=== PATIENT | male | born 1985 | race Caucasian/White ===

== ENCOUNTER 2016-11-19 09:29 | Inpatient (IN) | payer OTHER ==
[2016-11-19 10:13] VITALS: BMI 25.4
--- NOTE | 2016-11-19 14:34 | HP ---
COWS - Scale Resting Pulse: 0= [place] 80 or Below Sweatin=Flushed/Facial Moisture Restless Observation: 1= Difficult to Sit Still Pupil Size: 0= Normal to Room Light Bone or Joint Aches: 2= Severe Diffuse Aches Runny Nose/ Eye Tearin= Runny Nose/Eyes GI Upset > 30mins: 1= Stomach Cramp Tremor Observation: 2= Slight Tremor Visible Yawning Observation: 2= >3x During Session Anxiety or Irritability: 2=Irritable/Anxious Goose Flesh Skin: 3=Piloerection COWS Score: 17 Admission ROS [facility] Allergies/Adverse Reactions: Allergies Allergy/AdvReac Type Severity Reaction Status Date / Time No Known Allergies Allergy Verified 11/19/16 14:27 History of Present Illness: pt is a 31yr old male with a history of heroin, fentanyl, cocaine, cannabis dependence seeking detox for treatment. Exam Limitations: No Limitations - Ebola screening Have you traveled outside of the country in the last 21 days: No Have you had contact with anyone from an Ebola affected area: No Have you been sick,other than usual withdrawal symptoms: No Do you have a fever: No - Review of Systems Constitutional: Chills, Loss of Appetite, Night Sweats EENT: reports: Tearing, Nose Congestion, Other (left ear deafness.) Respiratory: reports: No Symptoms reported Cardiac: reports: No Symptoms Reported GI: reports: Nausea, Poor Appetite, Poor Fluid Intake : reports: No Symptoms Reported Musculoskeletal: reports: Back Pain, Muscle Pain Integumentary: reports: Flushing, Sweating, Other (abscess to right hand IVD) Neuro: reports: Headache, Tingling, Tremors Endocrine: reports: Excessive Sweating, Flushing, Intolerance to Cold, Intolerance to Heat Hematology: reports: No Symptoms Reported Psychiatric: reports: Judgement Intact, Orientated x3, Agitated, Anxious Other Systems: Reviewed and Negative Patient History - Patient Medical History Hx Anemia: No Hx Asthma: No Hx Chronic Obstructive Pulmonary Disease (COPD): No Hx Cancer: No Hx Cardiac Disorders: No Hx Congestive Heart Failure: No Hx Hypertension: No Hx Hypercholesterolemia: No Hx Pacemaker: No HX Cerebrovascular Accident: No Hx Seizures: No Hx Dementia: No Hx Diabetes: No Hx Gastrointestinal Disorders: No Hx Liver Disease: No Hx Genitourinary Disorders: No Hx Sexually Transmitted Disorders: No Hx Renal Disease (ESRD): No Hx Thyroid Disease: No Hx Human Immunodeficiency Virus (HIV): No (negative) Hx Hepatitis C: No (negative) Hx Depression: No Hx Suicide Attempt: No Hx Bipolar Disorder: No Hx Schizophrenia: No - Patient Surgical History Past Surgical History: No - PPD History Previous Implant?: Yes Documented Results: Negative w/o proof Implanted On Prior R Admission?: No PPD to be Administered?: Yes - Reproductive History Patient is a Female of Child Bearing Age (11 -55 yrs old): No - Smoking Cessation Smoking history: Never smoked Aproximately how many cigarettes per day: 10 Hx Chewing Tobacco Use: No Initiated information on smoking cessation: Yes 'Breaking Loose' booklet given: 11/19/16 - Substance & Tx. History Hx Alcohol Use: Yes Hx Substance Use: Yes Substance Use Type: Cocaine, Heroin, Opiates Hx Substance Use Treatment: Yes Family Disease History - Family Disease History Family History: Denies Admission Physical Exam [facility] - Vital Signs Vital Signs: Vital Signs - 24 hr 11/19/16 10:11 Temperature 98 F Pulse Rate 77 Respiratory 18 Rate Blood Pressure 141/80 - Physical General Appearance: Yes: Appropriately Dressed, Moderate Distress, Tremorous, Irritable, Sweating, Anxious HEENTM: Yes: Normal Voice, Nasal Congestion, Rhinorrhea Respiratory: Yes: Lungs Clear, Normal Breath Sounds, No Respiratory Distress Neck: Yes: Within Normal Limits Breast: Yes: Within Normal Limits Cardiology: Yes: Regular Rhythm, Regular Rate, S1, S2 Abdominal: Yes: Normal Bowel Sounds, Non Tender Genitourinary: Yes: Within Normal Limits Back: Yes: Normal Inspection Musculoskeletal: Yes: Back pain, Muscle Pain Extremities: Yes: Normal Capillary Refill, Non-Tender, Tremors Neurological: Yes: Fully Oriented, Alert, Normal Response Integumentary: Yes: Diaphoresis, Track Pringle Lymphatic: Yes: Within Normal Limits - Diagnostic (1) Cannabis dependence, uncomplicated Current Visit: Yes Status: Chronic (2) Cocaine dependence, uncomplicated Current Visit: Yes Status: Chronic (3) Nicotine dependence Current Visit: Yes Status: Chronic Qualifiers: Nicotine product type: cigarettes Substance use status: uncomplicated Qualified Code(s): F17.210 - Nicotine dependence, cigarettes, uncomplicated (4) Opioid dependence with withdrawal Current Visit: Yes Status: Chronic (5) Fentanyl dependence Current Visit: Yes Status: Chronic Cleared for Admission [facility] - Detox or Rehab [facility] Level of Care: Medically Managed Detox Regimen/Protocol: Methadone [facility] Breath Alcohol Content Breath Alcohol Content: 0 Urine Drug Screen - Results Drug Screen Negative: No Urine Drug Screen Results: THC-Marijuana, BRIANA-Cocaine, OPI-Opiates, MTD- Methadone
[2016-11-19] MEDS ORDERED: diphenhydrAMINE HCL 50 MG CAPSULE PO PRN (14:46)
[2016-11-19] MEDS ORDERED: hydrOXYzine PAMOATE 50 MG CAPSULE (FP) PO PRN (14:46)
[2016-11-19] MEDS ORDERED: MAGNESIUM CITRATE 300 ML BOTTLE PO PRN (14:46)
[2016-11-19] MEDS ORDERED: ACETAMINOPHEN 325 MG TABLET (FP) PO PRN (14:46)
[2016-11-19] MEDS ORDERED: LOPERAMIDE HCL 2 MG CAPSULE PO PRN (14:46)
[2016-11-19] MEDS ORDERED: IBUPROFEN 600 MG TABLET (FP) PO PRN (14:46)
[2016-11-19] MEDS ORDERED: MENTHOL/PHENOL 1 EACH UD MM PRN (14:46)
[2016-11-19] MEDS ORDERED: guaiFENesin/D-METHORPHAN HB 10 ML UNIT-DOSE CUPS PO PRN (14:46)
[2016-11-19] MEDS ORDERED: MAGNESIUM HYDROX 2400MG/30ML ORAL SUSPENSION 30 ML CUP PO PRN (14:46)
[2016-11-19] MEDS ORDERED: NICOTINE POLACRILEX 4 MG GUM BUC PRN (14:46)
[2016-11-19] MEDS ORDERED: MAG HYDROX/AL HYDROX/SIMETH 30 ML UNIT-DOSE CUP PO PRN (14:46)
[2016-11-19] MEDS ORDERED: P-EPHED 60MG/TRIPROLIDI 2.5MG TABLET PO PRN (14:46)
[2016-11-19] MEDS ORDERED: METHADONE HCL 10 MG TABLET (FOR DETOX USE ONLY) PO ONE ×2 (15:31→23:00)
[2016-11-19] MEDS: diazePAM 5 MG TABLET PO PRN ×2 (15:48→22:04)
[2016-11-19] MEDS ORDERED: COLLOIDAL OATMEAL 1 BAR EACH TP PRN (17:12)
[2016-11-19] MEDS: VITAMINS A AND D TOPICAL OINTMENT 60 GM TUBE TP SCH ×2 (17:13→23:34)
[2016-11-19] MEDS: CEPHALEXIN MONOHYDRATE 500 MG CAPSULE (UD) PO SCH ×2 (17:13→23:21)
[2016-11-19 20:13] LABS: URINE APPEARANCE CLEAR; URINE BILIRUBIN NEGATIVE (NEGATIVE); URINE BLOOD NEGATIVE (NEGATIVE); URINE COLOR DKYELLOW; URINE GLUCOSE (UA) NEGATIVE (NEGATIVE); URINE KETONE NEGATIVE (NEGATIVE); URINE LEUK ESTERASE NEGATIVE (NEGATIVE); URINE NITRITE NEGATIVE (NEGATIVE); URINE PROTEIN NEGATIVE (NEGATIVE); URINE UROBILINOGEN 4.0 E.U/dl E.U./dl (0.2-1.0)
[2016-11-19] MEDS: BACITRACIN 0.9 GM PACKET TP SCH (22:03)
[2016-11-19] MEDS: cloNIDine HCL 0.1 MG TABLET PO SCH (22:04)
[2016-11-19] MEDS: THIAMINE HCL 100 MG TABLET (FP) PO SCH (22:21)
[2016-11-20] MEDS: diazePAM 5 MG TABLET PO PRN ×4 (05:47→22:06)
[2016-11-20] MEDS: CEPHALEXIN MONOHYDRATE 500 MG CAPSULE (UD) PO SCH ×4 (05:47→23:03)
[2016-11-20] MEDS: VITAMINS A AND D TOPICAL OINTMENT 60 GM TUBE TP SCH ×4 (06:19→23:03)
[2016-11-20] MEDS ORDERED: METHADONE HCL 10 MG TABLET (FOR DETOX USE ONLY) PO ONE (10:00)
[2016-11-20 10:17] LABS: MCH 30.5 pg (25.7-33.7); MCHC 34.7 g/dl (32.0-35.9); PLATELET COUNT 213 K/MM3 (134-434); RDW 12.3 % (11.9-15.9)
[2016-11-20 10:22] LABS: ALBUMIN 3.3 g/dl (3.4-5.0); ANION GAP 11 (8-16); CALCIUM 8.3 mg/dL (8.5-10.1); CO2 27 mmol/L (21-32); GLUCOSE,RANDOM 93 mg/dL (74-106); SGOT/AST 106 U/L (15-37); SGPT/ALT 110 U/L (12-78)
[2016-11-20] MEDS: cloNIDine HCL 0.1 MG TABLET PO SCH ×2 (10:23→22:07)
[2016-11-20] MEDS: NICOTINE 21 MG/24 HOURS TOPICAL PATCH TD SCH (10:23)
[2016-11-20] MEDS: BACITRACIN 0.9 GM PACKET TP SCH ×2 (10:23→22:07)
[2016-11-20] MEDS: PRENATAL VITAMINS W/ FOLIC ACID TABLET (FP) PO SCH (10:23)
[2016-11-20 10:24] LABS: ALK PHOS 73 U/L (45-117); BILIRUBIN,TOTAL 0.7 mg/dL (0.2-1.0); COCKROFT - GAULT 169.95; CREATININE 0.8 mg/dL (0.7-1.3); TOT PROT 6.4 g/dl (6.4-8.2)
[2016-11-20] MEDS: CYCLOBENZAPRINE HCL 10 MG TABLET (FP) PO PRN ×2 (10:24→22:06)
--- NOTE | 2016-11-20 13:36 | PN ---
[facility]HS COWS - Scale Resting Pulse: 1= [place] 81-100 Sweatin=Flushed/Facial Moisture Restless Observation: 1= Difficult to Sit Still Pupil Size: 0= Normal to Room Light Bone or Joint Aches: 2= Severe Diffuse Aches Runny Nose/ Eye Tearin= Runny Nose/Eyes GI Upset > 30mins: 2= Nausea/Diarrhea Tremor Observation of Outstretched Hands: 2= Slight Tremor Visible Yawning Observation: 1= 1-2x During Session Anxiety or Irritability: 2=Irritable/Anxious Goose Flesh Skin: 0=Smooth Skin COWS Score: 15 BHS Progress Note (SOAP) Subjective: Anxiety,tremors,sweating,interrupted sleep,restless.C/O rash on face not getting better with bacitracin oin't Objective: 11/20/16 13:35 Last Vital Signs Temp Pulse Resp BP Pulse Ox 98.4 F 93 H 18 123/76 11/20/16 09:32 11/20/16 09:32 11/20/16 09:32 11/20/16 09:32 Laboratory Tests 11/19/16 11/20/16 11/20/16 15:32 06:00 06:00 WBC 5.0 RBC 4.22 Hgb 12.9 Hct 37.2 MCV 88.0 MCHC 34.7 RDW 12.3 Plt Count 213 MPV 8.0 Sodium 139 Potassium 3.9 Chloride 101 Carbon Dioxide 27 Anion Gap 11 BUN 13 Creatinine 0.8 Creat Clearance w eGFR > 60 Random Glucose 93 Calcium 8.3 L Total Bilirubin 0.7 AST 106 H ALT 110 H Alkaline Phosphatase 73 Total Protein 6.4 Albumin 3.3 L Urine Color Dkyellow Urine Appearance Clear Urine pH 6.0 Ur Specific [place] 1.024 Urine Protein Negative Urine Glucose (UA) Negative Urine Ketones Negative Urine Blood Negative Urine Nitrite Negative Urine Bilirubin Negative Urine Urobilinogen 4.0 e.u/dl Ur Leukocyte Esterase Negative labs noted Assessment: 11/20/16 13:35 Withdrawal sx. Plan: Continue detox
[2016-11-20 14:00] LABS: HIV 1 & 2 AB NEGATIVE; HIV 1 AGp24 NEGATIVE
[2016-11-20] MEDS: HYDROCORTISONE 1% TOPICAL CREAM 30 GM TUBE TP SCH ×3 (15:29→22:07)
--- NOTE | 2016-11-20 16:16 | EKG ---
Test Reason : Blood Pressure : / mmHG Vent. Rate : 076 BPM Atrial Rate : 076 BPM P-R Int : 160 ms QRS Dur : 106 ms QT Int : 394 ms P-R-T Axes : 073 066 034 degrees QTc Int : 443 ms NORMAL SINUS RHYTHM NORMAL ECG NO PREVIOUS ECGS AVAILABLE Confirmed by AB SHER MD ([id number]) on 11/20/2016 4:16:27 PM Referred By: Confirmed By:AB SHER MD
[2016-11-20] MEDS: THIAMINE HCL 100 MG TABLET (FP) PO SCH (22:06)
[2016-11-21] MEDS: CEPHALEXIN MONOHYDRATE 500 MG CAPSULE (UD) PO SCH ×4 (05:32→23:06)
[2016-11-21] MEDS: VITAMINS A AND D TOPICAL OINTMENT 60 GM TUBE TP SCH ×4 (05:33→23:06)
[2016-11-21] MEDS ORDERED: METHADONE HCL 5 MG TABLET (FOR DETOX USE ONLY) PO ONE (10:00)
[2016-11-21] MEDS: HYDROCORTISONE 1% TOPICAL CREAM 30 GM TUBE TP SCH ×4 (10:06→22:05)
[2016-11-21] MEDS: PRENATAL VITAMINS W/ FOLIC ACID TABLET (FP) PO SCH (10:06)
[2016-11-21] MEDS: diazePAM 5 MG TABLET PO PRN ×2 (10:06→22:03)
[2016-11-21] MEDS: CYCLOBENZAPRINE HCL 10 MG TABLET (FP) PO PRN ×2 (10:06→22:03)
[2016-11-21] MEDS: BACITRACIN 0.9 GM PACKET TP SCH ×2 (10:06→22:03)
[2016-11-21] MEDS: cloNIDine HCL 0.1 MG TABLET PO SCH ×2 (10:06→22:03)
[2016-11-21] MEDS: NICOTINE 21 MG/24 HOURS TOPICAL PATCH TD SCH (10:06)
--- NOTE | 2016-11-21 12:54 | PN ---
[facility] COWS - Scale Resting Pulse: 0= [place] 80 or Below Sweatin=Flushed/Facial Moisture Restless Observation: 1= Difficult to Sit Still Pupil Size: 0= Normal to Room Light Bone or Joint Aches: 2= Severe Diffuse Aches Runny Nose/ Eye Tearin= Runny Nose/Eyes GI Upset > 30mins: 2= Nausea/Diarrhea Tremor Observation of Outstretched Hands: 2= Slight Tremor Visible Yawning Observation: 1= 1-2x During Session Anxiety or Irritability: 2=Irritable/Anxious Goose Flesh Skin: 0=Smooth Skin COWS Score: 14 BHS Progress Note (SOAP) Subjective: anxiety,tremors,sweating,restless,interrupted sleep. Objective: 11/21/16 12:54 Vital Signs - 8 hr 11/21/16 11/21/16 06:26 09:23 Temperature 96.8 F L 97.1 F L Pulse Rate 62 68 Respiratory 16 18 Rate Blood Pressure 98/58 108/63 Laboratory Tests 11/19/16 11/20/16 11/20/16 15:32 06:00 06:00 WBC 5.0 RBC 4.22 Hgb 12.9 Hct 37.2 MCV 88.0 MCHC 34.7 RDW 12.3 Plt Count 213 MPV 8.0 Sodium 139 Potassium 3.9 Chloride 101 Carbon Dioxide 27 Anion Gap 11 BUN 13 Creatinine 0.8 Creat Clearance w eGFR > 60 Random Glucose 93 Calcium 8.3 L Total Bilirubin 0.7 AST 106 H ALT 110 H Alkaline Phosphatase 73 Total Protein 6.4 Albumin 3.3 L Urine Color Dkyellow Urine Appearance Clear Urine pH 6.0 Ur Specific [place] 1.024 Urine Protein Negative Urine Glucose (UA) Negative Urine Ketones Negative Urine Blood Negative Urine Nitrite Negative Urine Bilirubin Negative Urine Urobilinogen 4.0 e.u/dl Ur Leukocyte Esterase Negative RPR Titer HIV 1&2 Antibody Screen HIV P24 Antigen 11/20/16 11/20/16 06:00 10:05 WBC RBC Hgb Hct MCV MCHC RDW Plt Count MPV Sodium Potassium Chloride Carbon Dioxide Anion Gap BUN Creatinine Creat Clearance w eGFR Random Glucose Calcium Total Bilirubin AST ALT Alkaline Phosphatase Total Protein Albumin Urine Color Urine Appearance Urine pH Ur Specific [place] Urine Protein Urine Glucose (UA) Urine Ketones Urine Blood Urine Nitrite Urine Bilirubin Urine Urobilinogen Ur Leukocyte Esterase RPR Titer Nonreactive HIV 1&2 Antibody Screen Negative HIV P24 Antigen Negative labs noted Assessment: 11/21/16 12:54 Withdrawal sx. Plan: Continue detox
[2016-11-21] MEDS: THIAMINE HCL 100 MG TABLET (FP) PO SCH (22:03)
[2016-11-22] MEDS: diazePAM 5 MG TABLET PO PRN ×2 (05:39→10:09)
[2016-11-22] MEDS: CEPHALEXIN MONOHYDRATE 500 MG CAPSULE (UD) PO SCH ×4 (05:39→23:03)
[2016-11-22] MEDS: VITAMINS A AND D TOPICAL OINTMENT 60 GM TUBE TP SCH ×4 (05:40→23:04)
[2016-11-22] MEDS ORDERED: METHADONE HCL 5 MG TABLET (FOR DETOX USE ONLY) PO ONE (10:00)
[2016-11-22] MEDS: NICOTINE 21 MG/24 HOURS TOPICAL PATCH TD SCH (10:07)
[2016-11-22] MEDS: cloNIDine HCL 0.1 MG TABLET PO SCH ×2 (10:07→22:37)
[2016-11-22] MEDS: PRENATAL VITAMINS W/ FOLIC ACID TABLET (FP) PO SCH (10:07)
[2016-11-22] MEDS: HYDROCORTISONE 1% TOPICAL CREAM 30 GM TUBE TP SCH ×4 (10:07→22:02)
[2016-11-22] MEDS: BACITRACIN 0.9 GM PACKET TP SCH ×2 (10:07→22:03)
--- NOTE | 2016-11-22 10:39 | PN ---
BHS Progress Note (SOAP) Subjective: Sweating,interrupted sleep,restless Objective: 11/22/16 10:37 Vital Signs - 8 hr 11/22/16 11/22/16 06:35 09:45 Temperature 96.2 F L 96.3 F L Pulse Rate 52 L 61 Respiratory 18 18 Rate Blood Pressure 112/69 110/64 Laboratory Tests 11/19/16 11/20/16 11/20/16 15:32 06:00 06:00 WBC 5.0 RBC 4.22 Hgb 12.9 Hct 37.2 MCV 88.0 MCHC 34.7 RDW 12.3 Plt Count 213 MPV 8.0 Sodium 139 Potassium 3.9 Chloride 101 Carbon Dioxide 27 Anion Gap 11 BUN 13 Creatinine 0.8 Creat Clearance w eGFR > 60 Random Glucose 93 Calcium 8.3 L Total Bilirubin 0.7 AST 106 H ALT 110 H Alkaline Phosphatase 73 Total Protein 6.4 Albumin 3.3 L Urine Color Dkyellow Urine Appearance Clear Urine pH 6.0 Ur Specific [place] 1.024 Urine Protein Negative Urine Glucose (UA) Negative Urine Ketones Negative Urine Blood Negative Urine Nitrite Negative Urine Bilirubin Negative Urine Urobilinogen 4.0 e.u/dl Ur Leukocyte Esterase Negative RPR Titer HIV 1&2 Antibody Screen HIV P24 Antigen 11/20/16 11/20/16 06:00 10:05 WBC RBC Hgb Hct MCV MCHC RDW Plt Count MPV Sodium Potassium Chloride Carbon Dioxide Anion Gap BUN Creatinine Creat Clearance w eGFR Random Glucose Calcium Total Bilirubin AST ALT Alkaline Phosphatase Total Protein Albumin Urine Color Urine Appearance Urine pH Ur Specific [place] Urine Protein Urine Glucose (UA) Urine Ketones Urine Blood Urine Nitrite Urine Bilirubin Urine Urobilinogen Ur Leukocyte Esterase RPR Titer Nonreactive HIV 1&2 Antibody Screen Negative HIV P24 Antigen Negative labs noted Assessment: 11/22/16 10:38 Withdrawal sx. Plan: Continue detox
[2016-11-22] MEDS: THIAMINE HCL 100 MG TABLET (FP) PO SCH (22:02)
[2016-11-22] MEDS: CYCLOBENZAPRINE HCL 10 MG TABLET (FP) PO PRN (22:04)
[2016-11-23] MEDS: CEPHALEXIN MONOHYDRATE 500 MG CAPSULE (UD) PO SCH ×4 (05:27→23:25)
[2016-11-23] MEDS: VITAMINS A AND D TOPICAL OINTMENT 60 GM TUBE TP SCH ×4 (05:28→23:41)
--- NOTE | 2016-11-23 09:32 | PN ---
BHS Progress Note (SOAP) Subjective: Sweating,interrupted sleep,restless Objective: 11/23/16 09:30 Vital Signs - 8 hr 11/23/16 06:31 Temperature 96.8 F L Pulse Rate 47 L Respiratory 18 Rate Blood Pressure 109/69 Laboratory Last Values WBC 5.0 K/mm3 (4.0-10.0) 11/20/16 06:00 RBC 4.22 M/mm3 (4.00-5.60) 11/20/16 06:00 Hgb 12.9 GM/dL (11.7-16.9) 11/20/16 06:00 Hct 37.2 % (35.4-49) 11/20/16 06:00 MCV 88.0 fl (80-96) 11/20/16 06:00 MCHC 34.7 g/dl (32.0-35.9) 11/20/16 06:00 RDW 12.3 % (11.9-15.9) 11/20/16 06:00 Plt Count 213 K/MM3 (134-434) 11/20/16 06:00 MPV 8.0 fl (7.5-11.1) 11/20/16 06:00 Sodium 139 mmol/L (136-145) 11/20/16 06:00 Potassium 3.9 mmol/L (3.5-5.1) 11/20/16 06:00 Chloride 101 mmol/L (98-107) 11/20/16 06:00 Carbon Dioxide 27 mmol/L (21-32) 11/20/16 06:00 Anion Gap 11 (8-16) 11/20/16 06:00 BUN 13 mg/dL (7-18) 11/20/16 06:00 Creatinine 0.8 mg/dL (0.7-1.3) 11/20/16 06:00 Creat Clearance w eGFR > 60 (>60) 11/20/16 06:00 Random Glucose 93 mg/dL (74-106) 11/20/16 06:00 Calcium 8.3 mg/dL (8.5-10.1) L 11/20/16 06:00 Total Bilirubin 0.7 mg/dL (0.2-1.0) 11/20/16 06:00 AST 106 U/L (15-37) H 11/20/16 06:00 ALT 110 U/L (12-78) H 11/20/16 06:00 Alkaline Phosphatase 73 U/L (45-117) 11/20/16 06:00 Total Protein 6.4 g/dl (6.4-8.2) 11/20/16 06:00 Albumin 3.3 g/dl (3.4-5.0) L 11/20/16 06:00 Urine Color Dkyellow 11/19/16 15:32 Urine Appearance Clear 11/19/16 15:32 Urine pH 6.0 (5.0-8.0) 11/19/16 15:32 Ur Specific [place] 1.024 (1.001-1.035) 11/19/16 15:32 Urine Protein Negative (NEGATIVE) 11/19/16 15:32 Urine Glucose (UA) Negative (NEGATIVE) 11/19/16 15:32 Urine Ketones Negative (NEGATIVE) 11/19/16 15:32 Urine Blood Negative (NEGATIVE) 11/19/16 15:32 Urine Nitrite Negative (NEGATIVE) 11/19/16 15:32 Urine Bilirubin Negative (NEGATIVE) 11/19/16 15:32 Urine Urobilinogen 4.0 e.u/dl E.U./dl (0.2-1.0) 11/19/16 15:32 Ur Leukocyte Esterase Negative (NEGATIVE) 11/19/16 15:32 RPR Titer Nonreactive (NONREACTIVE) 11/20/16 06:00 HIV 1&2 Antibody Screen Negative 11/20/16 10:05 HIV P24 Antigen Negative 11/20/16 10:05 labs noted Assessment: 11/23/16 09:31 Withdrawal sx. Plan: Continue detox
[2016-11-23] MEDS ORDERED: METHADONE HCL 10 MG TABLET (FOR DETOX USE ONLY) PO ONE (10:00)
[2016-11-23] MEDS: PRENATAL VITAMINS W/ FOLIC ACID TABLET (FP) PO SCH (10:01)
[2016-11-23] MEDS: NICOTINE 21 MG/24 HOURS TOPICAL PATCH TD SCH (10:02)
[2016-11-23] MEDS: HYDROCORTISONE 1% TOPICAL CREAM 30 GM TUBE TP SCH ×4 (10:02→22:23)
[2016-11-23] MEDS: cloNIDine HCL 0.1 MG TABLET PO SCH ×2 (10:02→22:03)
[2016-11-23] MEDS: BACITRACIN 0.9 GM PACKET TP SCH ×2 (10:02→22:23)
[2016-11-23] MEDS: CYCLOBENZAPRINE HCL 10 MG TABLET (FP) PO PRN (10:04)
--- NOTE | 2016-11-23 18:08 | PN ---
B[facility] Progress Note Note: received nurse informed refuses keflex recommend health education on purpose and adverse effects on none compliance
[2016-11-23] MEDS ORDERED: diphenhydrAMINE HCL 25 MG CAPSULE (FP) PO ONE (21:18)
[2016-11-23] MEDS ORDERED: diphenhydrAMINE HCL 50 MG CAPSULE PO SCH (22:00)
[2016-11-23] MEDS: THIAMINE HCL 100 MG TABLET (FP) PO SCH (22:23)
[2016-11-24] MEDS: VITAMINS A AND D TOPICAL OINTMENT 60 GM TUBE TP SCH (05:26)
[2016-11-24] MEDS: CEPHALEXIN MONOHYDRATE 500 MG CAPSULE (UD) PO SCH (05:36)
[2016-11-24] MEDS ORDERED: METHADONE HCL 5 MG TABLET (FOR DETOX USE ONLY) PO ONE (06:00)
[2016-11-24 09:35] VITALS: BP 110/67; PULSE 62; TEMP 95.3
--- NOTE | 2016-11-24 12:38 | DS ---
[facility] Detox Discharge Summary Admission Date: 11/19/16 Discharge Date: 11/24/16 - History Present History: Cannabis Dependence, Cocaine Dependence, Opioid Dependence Additional Comments: DETOX COMPLETED. ALERT O X 3. NAD. Pertinent Past History: DENIED PMHX AND PPSYC HX - Physical Exam Results Vital Signs: Vital Signs Temperature 95.3 F L 11/24/16 09:34 Pulse Rate 62 11/24/16 09:34 Respiratory Rate 18 11/24/16 09:34 Blood Pressure 110/67 11/24/16 09:34 O2 Sat by Pulse Oximetry (%) Pertinent Admission Physical Exam Findings: WITHDRAWAL SX - Treatment Hospital Course: Detox Protocol Followed, Detoxed Safely, Responded well, Discharged Condition Good - Medication Discharge Medications: Ambulatory Orders NK [No Known Home Medication] 11/19/16 - Diagnosis (1) Cannabis dependence, uncomplicated Status: Acute (2) Cocaine dependence, uncomplicated Status: Acute (3) Nicotine dependence Status: Acute Qualifiers: Nicotine product type: cigarettes Substance use status: in withdrawal Qualified Code(s): F17.213 - Nicotine dependence, cigarettes, with withdrawal (4) Opioid dependence with withdrawal Status: Acute - AMA Did Patient Leave Against Medical Advice: No
== END 2016-11-24 09:46 | disposition home or self-care (01) | DRG 773 ==
LOC: YASAS 09:29 → Y3N 15:06
PROVIDERS: ADMIT Internal Medicine; ATTEND Internal Medicine
PROC: HZ2ZZZZ Detoxification Services for Substance Abuse Treatment (ICD-10-PCS; principal; 2016-11-24)
DX: F11.23 Opioid dependence with withdrawal (principal); F14.20 Cocaine dependence, uncomplicated; F12.20 Cannabis dependence, uncomplicated; F17.210 Nicotine dependence, cigarettes, uncomplicated; Z59.0 Homelessness
CPT/HCPCS: 36415; 80053; 81003; 85027; 86593; 87389; 93005; 93010